=== PATIENT | female | born 1965 | race African-American/Black ===

== ENCOUNTER 2024-12-05 11:58 | Emergency (ER) | payer OTHER, SELFPAY ==
--- OUTSIDE RECORDS SUMMARY | 2024-12-05 08:00 | XMS_ITS | Encounter Summary ---
Author Organization [facility] Address [address] [place] [address] Care Team Providers Care Jar Capper Name Role Phone Kishore Nix MD Primary Care Provider [phone] Reason for Referral * Consultation (Routine) - Authorized Specialty Diagnoses / Procedures Referred By Radha matthews Referred To Contact Gastroenterology Diagnoses Other specified counseling Kishore Nix MD [address] [place] [address] Phone: tel: fax: Adalberto Britt DO [address] [place] [address] Phone: tel: fax: Referral ID Status Reason Start Date Expiration Date Visits Requested Visits Authorized [id number] Authorized Specialty Services Required 12/05/2025 1 1 Reason for Visit * Reason Comments Hypertension Hyperlipidemia Encounter Details Date Type Department Care Team (Late st Contact Info) Description 12/05/2024 8:00 AM EDT Office Visit Adult Medicine [address] [phone] Kishore Nix MD [address] [place] [address] Primary hypertension (Primary Dx); Prediabetes; CKD (chronic kidney disease) stage 4, GFR 15-29 ml/min ([facility] V24, [facility] V28); High cholesterol; Encounter for long-term (current) use of medications; Obstructive sleep apnea; Need for prophylactic vaccination and inoculation against influenza; Other specified counseling Social History Tobacco Use Types Packs/Day Years Used Date Smoking Tobacco: Never Smokeless Tobacco: Never Tobacco Cessation:Counseling Given: Not Answered Alcohol Use Standard Drinks/Week Comments Yes 3.3 (1 standard drink = 0.6 oz p ure alcohol) Housing Instability Answer Date Recorde d Are you worried that in the next 2 months you may not have stable housing? No 06/09/2024 Food Access & Nutrition Answer Date Rec orded Do you have access to a vari ety of food including fruits and vegetables? Yes 06/09/2024 Access to Healthcare Answer Date Record ed Within the last 3 months, ho w many times did you visit the emergency department for your medical care? 0 06/09/2024 Health Literacy Answer Date Recorded How often do you need to hav e someone help you when you read instructions, pamphlets, or other written material from your doctor or pharmacy? Never 06/09/2024 Caregiver: How often do you need to have someone help you when you read instructions, pamphlets, or other written material from your doctor or pharmacy? Not on file 06/09/2024 Financial Risk Answer Date Recorded How hard is it for you to pa y for the very basics like food, housing, medical care, and air conditioning / heating? Not very hard 06/09/2024 Transportation Answer Date Recorded Has the lack of transportati on kept you from meetings, work, or from getting things needed for daily living? No Has the lack of transportati on kept you from medical appointments or from getting medications? No 06/09/2024 Social Isolation Answer Date Recorded How often do you feel lonely or isolated from th ose around you? Never 06/09/2024 Food Risk Answer Date Recorded Within the past 12 months we worried whether our food would run out before we got money to buy more. Never true 06/09/2024 Within the past 12 months th e food we bought just didn't last and we didn't have money to get more. Never true 06/09/2024 Dependent Care Answer Date Recorded Do you need help finding or paying for care for your loved ones. For example, child study team director or elderly care for an older adult? No 06/09/2024 Education Answer Date Recorded Do you think completing more education or training, like finishing a GED, going to college, or learning a trade, would be helpful for you? No 06/09/2024 Employment and Income Answer Date Recor ded During the last four weeks, have you been actively looking for work? No 06/09/2024 Living Situation Answer Date Recorded What is your living situation? Unrecognized valu e 06/09/2024 Comments No Sex and Gender Information Value Date Recorded Sex Assigned at Not on file Legal Sex Female 8:00 AM EST Gender Identity Not on file Sexual Orientation Not on file documented as of this encounter Last Filed Vital Signs Vital Sign Reading Time Taken Comments Blood Pressure 122/84 12/05/2024 8:03 AM EDT Pulse 60 12/05/2024 8:03 AM EDT Temperature 36.5 C (97.7 F) 12/05/2024 8:03 AM EDT Respiratory Rate 14 12/05/2024 8:03 AM EDT Oxygen Saturation 97% 12/05/2024 8:03 AM EDT Inhaled Oxygen Concentration - - Weight 83.9 kg (185 lb) 12/05/2024 8:03 AM EDT Height 160 cm (5' 3 ) 12/05/2024 8:03 AM EDT Body Mass Index 32.77 12/05/2024 8:03 AM EDT documented in this encounter Progress Notes * Kishore Nix MD - 12/05/2024 8:00 AM EDT CHIEF COMPLAINT: Hypertension and Hyperlipidemia IDENTIFIER: Ruthann Tamez is a 59 y.o. old female. HPI: Pt with htn pt is on lisinopril 20 mg norvasc 5mg ,coreg 12.5mg bid bp today near goal @122/84 Pt denies light head/dizziness, shortness of breath , chest pain lower ext edema mild cough on occasion not overly bothersome Pt with high cholesterol pt is on high intensity statin therapy with atorvastatin 40mg Last ldl 64 06/2024 lfts wnl Pt with ckd stage 4 last gfr 10 06/2024 Pt follows with renal (linda) Next appointment 02/26/2025 Pt with prediabetes A1c 5.4 06/2024 Pt with susan does have the cpap Pt not using regularly pt states bothers her allot makes the nose dry Pt to see pulm 01/24/2025 Pt is following with weight management pt has been on zepbound > 6 months Has f/u with bariatrics 05/2024 Has lost 73 pounds ROS: GENERAL: Negative for malaise, significant weight loss and fever RESPIRATORY: No cough, wheezing or shortness of breath CARDIOVASCULAR: Negative for chest pain, leg swelling and palpitations PAST MEDICAL HISTORY: Patient Active Problem List Diagnosis Date Noted Obesity (BMI 30-39.9) 12/01/2023 Postmenopausal bleeding 10/28/2022 Prediabetes 05/07/2020 Chronic insomnia 04/22/2019 Hypersomnolence 04/22/2019 High triglycerides 12/12/2017 Vitamin D deficiency 12/22/2016 Depression 03/30/2015 Obstructive sleep apnea 02/04/2014 CKD (chronic kidney disease) stage 4, GFR 15-29 ml/min (CMS/HCC V24, CMS/HCC V28) 07/12/2012 Proteinuria 06/22/2012 Other iron deficiency anemias 09/01/2009 Allergic rhinitis 05/18/2007 Anxiety 05/18/2007 Intramural leiomyoma of uterus 05/31/2006 Heartburn 10/21/2005 Hematuria 10/21/2005 Hypertension 10/21/2005 SOCIAL HISTORY: Social History Tobacco Use Smoking status: Never Smokeless tobacco: Never Substance Use Topics Alcohol use: Yes Alcohol/week: 3.3 standard drinks of alcohol FAMILY HISTORY: Family Status Relation Name Status Mother Alive htn Father at age 78 htn, renal failure MGM (Not Specified) PGM (Not Specified) Brother (Not Specified) Sister (Not Specified) Neg Hx (Not Specified) Brother Alive Sister Alive dm Sister Alive htn, Brother Alive No partnership data on file Family History[1] ACTIVE MEDICATIONS: Medications Taking[2] ALLERGIES: Patient has no known allergies. PHYSICAL EXAM: Blood pressure 122/84, pulse 60, temperature 36.5 ??C (97.7 ??F), temperature source Temporal, resp. rate 14, height 1.6 m (63 ), weight 83.9 kg (185 lb), SpO2 97%. There is no height or weight on file to calculate BMI. Plan is deferred until next visit APPEARANCE: Alert and in no acute distress EYES: PERRLA, conjunctiva and sclera normal HEART: RRR with normal S1 and S2, no murmurs, no gallops, no JVD appreciated LUNG: clear to auscultation bilaterally EXTREMITIES: Extremities warm and well perfused without clubbing, cyanosis, or edema LABS: none IMPRESSION: 1. Primary hypertension 2. Prediabetes 3. CKD (chronic kidney disease) stage 4, GFR 15-29 ml/min ([facility] V24, [facility] V28) 4. High cholesterol 5. Encounter for long-term (current) use of medications 6. Obstructive sleep apnea 7. Need for prophylactic vaccination and inoculation against influenza 8. Other specified counseling PLAN: Pt with htn bp today at goal <140/90 pt will continue current regimen of lisinopril 20 mg norvasc 5mg ,coreg 12.5mg bid. Will order bmp to assess renal function and lytes pt with high cholesterol on a statin will check lipid profile and lft's last ldl < 70 pt to continue current statin therapy Pt with prediabetes will check update A1c, d/w pt to watch diet as they are at risk of developing diabetes in the future pt on glp1a has lost > 50 lbs Pt with susan not using pt notes bothersome pt has lost > 50 lbs ? Still has need for cap patient has appointment with pulm 01/2025 ahi 8 08/2024 Patient with ckd stage iv pt last gfr 10 bmp ordered today to update gfr. Pt follows with renal I will defer management per patient renal replacement is not currently being discussed Patient is due for colonoscopy referral to gi placed today Patient to f/u with me in 6 months Myself and my colleagues have maintained a long-term, longitudinal relationship with this patient, overseeing care of chronic conditions including hypertension and high cholesterol. This care relationship has significantly influenced my decision making and treatment plans during today's encounter. No orders of the defined types were placed in this encounter. ADDITIONAL ORDERS: None Kishore Nix MD on 12/05/2024 at 7:09 AM EDT [1] Family History Problem Relation Name Age of Onset Hyperlipidemia Mother Hyperlipidemia Father Hypertension Father Heart attack Father in his 60's Bladder Cancer Father Diabetes Maternal Grandmother Diabetes Paternal Grandmother Hypertension Brother Diabetes Sister Blindness Neg Hx Cataracts Neg Hx Glaucoma Neg Hx Macular degeneration Neg Hx Strabismus Neg Hx Colon cancer Neg Hx Breast cancer Neg Hx Ovarian cancer Neg Hx [2] No outpatient medications have been marked as taking for the 12/05/24 encounter (Appointment) with Kishore Nix MD. documented in this encounter Plan of Treatment Upcoming Encounters Date Type Department Care Team (Late st Contact Info) Description 12/06/2024 9:00 AM EDT Office Visit Adult Medicine [address] [phone] Kishore Nix MD [address] [place] [address] 01/24/2025 8:30 AM EST Office Visit Pulmonology - [address] [place] [phone] oJhn Cornejo MD [address] [place] [phone] 05/08/2025 1:45 PM EDT Office Visit Bariatric Surgery - [address] [place] [phone] Delmar Gamboa MD [address] [place] [phone] 05/29/2025 8:00 AM EDT Appointment Radiology Department - [address] [phone] 06/17/2025 1:00 PM EDT Office Visit Adult [address] [phone] Kishore Nix MD [address] [place] [address] Scheduled Referrals Name Type Priority Associated Diagnoses Order Schedule Ambulatory referral to Gastroenterology Outpatient Referral Routine Other specified counseling 1 Occurrences starting 12/05/2024 until 12/05/2025 documented as of this encounter Results * Hemoglobin A1c (12/05/2024 8:35 AM EDT) [facility] Hemoglobin A1C 5.2 <6.5 % LAB CHEMISTRY METHOD 12/05/2024 11:22 AM EDT [facility] Mean Bld Glu Estim. 103 mg/dL LAB CHEMISTRY METHOD 12/05/2024 11:22 AM EDT [facility] Blood Venous blood specimen / Unknown Venipuncture / Unknown 12/05/2024 8:35 AM EDT 12/05/2024 8:35 AM EDT us Kishore Nix MD LAB BLOOD ORDERABLES Final Resu lt [facility] [address] [place] [address], * (ABNORMAL) Comprehensive metabolic panel (12/05/2024 8:35 AM EDT) [facility] Sodium 138 133 - 145 mmol/L LAB CHEMISTRY METHOD 12/05/2024 11:45 AM [facility] Potassium 6.1(HH) 3.5 - 5.5 mmol/L LAB CHEMISTRY METHOD 12/05/2024 11:45 AM [facility] Chloride 113(H) 96 - 110 mmol/L LAB CHEMISTRY METHOD 12/05/2024 11:45 AM [facility] CO2 19(L) 21 - 32 mmol/L LAB CHEMISTRY METHOD 12/05/2024 11:45 AM [facility] Anion Gap 6 3 - 11 LAB CHEMISTRY METHOD 12/05/2024 11:45 AM [facility] Glucose 92 70 - 100 mg/dL LAB CHEMISTRY METHOD 12/05/2024 11:45 AM [facility] BUN 43(H) 5 - 25 mg/dL LAB CHEMISTRY METHOD 12/05/2024 11:45 AM [facility] Creatinine 3.59(H) 0.50 - 1.10 mg/dL LAB CHEMISTRY METHOD 12/05/2024 11:45 AM [facility] eGFR 14(L) >=60 mL/min/1. 73m2 LAB CHEMISTRY METHOD 12/05/2024 11:45 AM [facility] Comment:Calculation based on the Chronic Kidney Disease Epidemiology Collaboration (CKD-EPI) equation refit without adjustment for race. BUN/Creatinine Ratio 12.0 LAB CHEMISTRY METHOD 12/05/2024 11:45 AM [facility] Calcium 9.0 8.5 - 10.5 mg/dL LAB CHEMISTRY METHOD 12/05/2024 11:45 AM [facility] AST (SGOT) 20 10 - 42 unit/L LAB CHEMISTRY METHOD 12/05/2024 11:45 AM [facility] ALT (SGPT) 21 10 - 60 unit/L LAB CHEMISTRY METHOD 12/05/2024 11:45 AM [facility] Alkaline Phosphatase 61 42 - 121 unit/L LAB CHEMISTRY METHOD 12/05/2024 11:45 AM [facility] Total Protein 6.9 6.0 - 8.0 g/dL LAB CHEMISTRY METHOD 12/05/2024 11:45 AM [facility] Albumin 3.8 3.2 - 5.0 g/dL LAB CHEMISTRY METHOD 12/05/2024 11:45 AM [facility] Total Bilirubin 0.5 0.0 - 1.4 mg/dL LAB CHEMISTRY METHOD 12/05/2024 11:45 AM [facility] Blood Venous blood specimen / Unknown Venipuncture / Unknown 12/05/2024 8:35 AM EDT 12/05/2024 8:35 AM EDT us Kishore Nix MD LAB BLOOD ORDERABLES Final Resu lt Performing Organization Address [facility]/ZIP Co de Phone Number [facility] [address] [place] [address], [place] [phone] * Lipid panel with reflex to direct LDL (12/05/2024 8:35 AM EDT) Cholesterol 171 0 - 200 mg/dL LAB CHEMISTRY METHOD 12/05/2024 11:14 AM EDT [facility] Triglycerides 103 0 - 150 mg/dL LAB CHEMISTRY METHOD 12/05/2024 11:14 AM EDT [facility] HDL 55 >=40 mg/dL LAB CHEMISTRY METHOD [facility]/05[facility] LDL Calculated 95 0 - 100 mg/dL LAB CHEMISTRY METHOD 12/05/2024 11:14 AM EDT [facility] Comment:Estimated LDL Calcul ated using equation: Total cholesterol - HDL cholesterol - (Triglycerides/5) VLDL Cholesterol Balwinder 20.6 mg/dL LAB CHEMISTRY METHOD 12/05/2024 11:14 AM EDT [facility] Non HDL Chol. (LDL+VLDL) 116 <145 mg/dL LAB CHEMISTRY METHOD 12/05/2024 11:14 AM EDT [facility] Chol/HDL Ratio 3.1 0.0 - 4.4 LAB CHEMISTRY METHOD 12/05/2024 11:14 AM T [facility] Blood Venous blood specimen / Unknown Venipuncture / Unknown 12/05/2024 8:35 AM EDT 12/05/2024 8:35 AM EDT us Kishore Nix MD LAB BLOOD ORDERABLES Final Resu lt [facility] [address] [place] [address], [place] [phone] documented in this encounter Visit Diagnoses Diagnosis Primary hypertension- Primary Unspecified essential hypertension Prediabetes Other abnormal glucose CKD (chronic kidney disease) stage 4, GFR 15-29 ml/min ([facility] V24, [facility] V28) Chronic kidney disease, Stage IV (severe) High cholesterol Pure hypercholesterolemia Encounter for long-term (current) use of medications Encounter for long-term (current) use of other medications Obstructive sleep apnea Obstructive sleep apnea (adult) (pediatric) Need for prophylactic vaccination and inoculation against influenza Other specified counseling documented in this encounter Orders Immunization/Injection Count Last Ordered Date First Ordered Date INFLUENZA TRIVALENT, MDCK, 0 .5ML, PRESERVATIVE FREE (FLUCELVAX) 6MO AND OLDER 1 12/05/2024 documented in this encounter Additional Health Concerns Assessment Noted Time PHQ-9 Depression Total Score: 0 06/10/19 25 10:24 AM EDT documented as of this encounter Care Teams Jar Capper Relationship Specialty Start Date End Date Kishore Nix MD [address] [place] [phone] PCP - General Internal Medicine 01/25/24 documented as of this encounter
--- OUTSIDE RECORDS SUMMARY | 2024-12-05 08:30 | XMS_ITS | Encounter Summary ---
Author Organization [facility] Address [address] [place] [address] Care Team Providers Care Day Care Teacher Name Role Phone Kishore Nix MD Primary Care Provider [phone] Encounter Details Date Type Department Care Team (Late st Contact Info) Description 12/05/2024 8:30 AM EDT Lab Draw Station [address] [phone] Prediabetes; Primary hypertension; CKD (chronic kidney disease) stage 4, GFR 15-29 ml/min (CMS/HCC V24, CMS/HCC V28); Encounter for long-term (current) use of medications; High cholesterol Social History Tobacco Use Types Packs/Day Years Used Date Smoking Tobacco: Never Smokeless Tobacco: Never Alcohol Use Standard Drinks/Week Comments Yes 3.3 [...] Record ed Within the last 3 months, candace w many times did you visit the [...] for your loved ones. For example, child welfare caseworker or elderly care for an older adult? [...] on file documented as of this encounter Plan of Treatment Upcoming Encounters Date Type Department Care Team (Late st Contact Info) Description 12/06/2024 9:00 AM EDT Office Visit Adult Medicine [address] [phone] Kishore Nix MD [address] [place] [address] 01/24/2025 8:30 AM EST Office Visit Pulmonology - [place] [address] [facility] [address] [place] [phone] John Cornejo MD [address] [place] [phone] 05/08/2025 1:45 PM EDT Office Visit Bariatric Surgery - [place] [address] [facility] [address] [place] [phone] Delmar Gamboa MD [address] [place] [phone] 05/29/2025 8:00 AM EDT Appointment Radiology Department - [address] [phone] 06/17/2025 1:00 PM EDT Office Visit Adult Medicine [place] [address] [phone] Kishore Nix MD [address] [place] [address] documented as of this encounter Procedures Procedure Name Priority Date/Time Associated Diagnosis Comments LIPID PANEL WITH REFLEX TO DIRECT LDL Routine 12/05/2024 8:35 AM EDT High cholesterol HEMOGLOBIN A1C Routine 12/05/2024 8:35 AM EDT Prediabetes COMPREHENSIVE METABOLIC PANEL Routine 12/05/2024 8:35 AM EDT Primary hypertension Prediabetes CKD (chronic kidney disease) stage 4, GFR 15-29 ml/min ([facility] V24, [facility] V28) Encounter for long-term (current) use of medications documented in this encounter Results * Lipid panel with reflex to direct LDL (12/05/2024 8:35 AM EDT) Cholesterol 171 0 - 200 mg/dL LAB CHEMISTRY METHOD 12/05/2024 11:14 AM [facility] Triglycerides 103 0 - 150 mg/dL LAB CHEMISTRY METHOD 12/05/2024 11:14 AM [facility] HDL 55 >=40 mg/dL LAB CHEMISTRY METHOD 12/05/2024 11:14 AM [facility] LDL Calculated 95 0 - 100 mg/dL LAB CHEMISTRY METHOD 12/05/2024 11:14 AM [facility] Comment:Estimated LDL Calcul ated using equation: Total cholesterol - HDL cholesterol - (Triglycerides/5) VLDL Cholesterol Balwinder 20.6 mg/dL LAB CHEMISTRY METHOD 12/05/2024 11:14 AM [facility] Non HDL Chol. (LDL+VLDL) 116 <145 mg/dL LAB CHEMISTRY METHOD 12/05/2024 11:14 AM [facility] Chol/HDL Ratio 3.1 0.0 - 4.4 LAB CHEMISTRY METHOD 12/05/2024 11:14 AM [facility] Blood Venous blood specimen / Unknown Venipuncture / Unknown 12/05/2024 8:35 AM EDT 12/05/2024 8:35 AM EDT us Kishore Nix MD LAB BLOOD ORDERABLES Final Resu lt [facility] [address] [place] [address], * (ABNORMAL) Comprehensive metabolic panel (12/05/2024 8:35 AM EDT) Sodium 138 133 - 145 mmol/L LAB CHEMISTRY METHOD 12/05/2024 11:45 AM [facility] Potassium 6.1(HH) 3.5 - 5.5 mmol/L LAB CHEMISTRY METHOD 12/05/2024 11:45 AM [facility] Chloride 113(H) 96 - 110 mmol/L LAB CHEMISTRY METHOD 12/05/2024 11:45 AM [facility] CO2 19(L) 21 - 32 mmol/L LAB CHEMISTRY METHOD 12/05/2024 11:45 AM [facility] Anion Gap 6 3 - 11 LAB CHEMISTRY METHOD 12/05/2024 11:45 AM [facility] Glucose 92 70 - 100 mg/dL LAB CHEMISTRY METHOD 12/05/2024 11:45 AM [facility] BUN 43(H) 5 - 25 mg/dL LAB CHEMISTRY METHOD 12/05/2024 11:45 AM [facility] Creatinine 3.59(H) 0.50 - 1.10 mg/dL LAB CHEMISTRY METHOD 12/05/2024 11:45 AM [facility] eGFR 14(L) >=60 mL/min/1. 73m2 LAB CHEMISTRY METHOD 12/05/2024 11:45 AM [facility] Comment:Calculation based on the Chronic Kidney Disease Epidemiology Collaboration (CKD-EPI) equation refit without adjustment for race. BUN/Creatinine Ratio 12.0 LAB CHEMISTRY METHOD 12/05/2024 11:45 AM [facility] Calcium 9.0 8.5 - 10.5 mg/dL LAB CHEMISTRY METHOD 12/05/2024 11:45 AM [facility] AST (SGOT) 20 10 - 42 unit/L LAB CHEMISTRY METHOD 12/05/2024 11:45 AM [facility] ALT (SGPT) 21 10 - 60 unit/L LAB CHEMISTRY METHOD 12/05/2024 11:45 AM [facility] Alkaline Phosphatase 61 42 - 121 unit/L LAB CHEMISTRY METHOD 12/05/2024 11:45 AM [facility] Total Protein 6.9 6.0 - 8.0 g/dL LAB CHEMISTRY METHOD 12/05/2024 11:45 AM [facility] Albumin 3.8 3.2 - 5.0 g/dL LAB CHEMISTRY METHOD 12/05/2024 11:45 AM EDT [facility] Total Bilirubin 0.5 0.0 - 1.4 mg/dL LAB CHEMISTRY METHOD 12/05/2024 11:45 AM EDT [facility] Blood Venous blood specimen / Unknown Venipuncture / Unknown 12/05/2024 8:35 AM EDT 12/05/2024 8:35 AM EDT us Kishore Nix MD LAB BLOOD ORDERABLES Final Resu lt [facility] [address] [place] [address], [place] [phone] * Hemoglobin A1c (12/05/2024 8:35 AM EDT) Hemoglobin A1C 5.2 <6.5 % LAB CHEMISTRY METHOD 12/05/2024 11:22 AM EDT [facility] Mean Bld Glu Estim. 103 mg/dL LAB CHEMISTRY METHOD 12/05/2024 11:22 AM EDT [facility] Blood Venous blood specimen / Unknown Venipuncture / Unknown 12/05/2024 8:35 AM EDT 12/05/2024 8:35 AM EDT us Kishore Nix MD LAB BLOOD ORDERABLES Final Resu lt [facility] [address] [place] [address], [place] [phone] documented in this encounter Visit Diagnoses Diagnosis Prediabetes Other abnormal glucose Primary hypertension Unspecified essential hypertension CKD (chronic kidney disease) stage 4, GFR 15-29 ml/min ([facility] V24, [facility] V28) Chronic kidney disease, Stage IV (severe) Encounter for long-term (current) use of medications Encounter for long-term (current) use of other medications High cholesterol Pure hypercholesterolemia documented in this encounter Additional Health Concerns Assessment Noted Time PHQ-9 Depression Total Score: 0 06/10/19 25 10:24 AM EDT documented as of this encounter Care Teams Day Care Teacher Relationship Specialty Start Date End Date Kishore Nix MD [address] [place] [phone] PCP - General Internal Medicine 01/25/24 documented as of this encounter
[2024-12-05 12:33] VITALS: BP 161/102; PULSE 73; RESP 16; TEMP 36.6; O2SAT 98; BMI 32.8
--- NOTE | 2024-12-05 12:34 | ECG_ITS ---
Test Reason : HYPERKALEMIA Blood Pressure : */* mmHG Vent. Rate : 69 BPM Atrial Rate : 69 BPM P-R Int : 170 ms QRS Dur : 80 ms QT Int : 366 ms P-R-T Axes : 62 20 51 degrees QTcB Int : 392 ms Normal sinus rhythm Normal ECG When compared with ECG of 09-Mar-2015 07:00, No significant change was found Referred By: Jared Petersen Electronically Signed By: CLIFTON PEREZ
--- NOTE | 2024-12-05 12:37 | ED.GENADULT ---
HPI - General Adult General Chief complaint: Recheck/Abnormal Lab/Rx Stated complaint: abnormal labs Time Seen by Provider: 12/05/24 18:50 Source: patient Mode of arrival: ambulatory Limitations: no limitations History of Present Illness ED Provider: Jared Petersen HPI narrative: 59 yold female with pmh of CKD presents to the ED for hyperkelemia. Patient was sent from PCP due to potassium level of 6.1. patient labs were drawn this morning and when she got home they called her with results and informed her to go go the ED. Patient denies any symptoms. patient states she feels fine. Related Data Home Medications ?Medication ?Instructions ?Recorded ?Confirmed albuterol sulfate 90 mcg/actuation inhalation 08/27/20 08/27/20 aerosol inhaler amlodipine 5 mg tablet 5 mg PO DAILY 08/27/20 08/27/20 atorvastatin 20 mg tablet 20 mg PO BEDTIME 08/27/20 08/27/20 carvedilol 12.5 mg tablet 12.5 mg PO BID 08/27/20 08/27/20 ergocalciferol (vitamin D2) 1,250 1,250 mcg PO QWEEK 08/27/20 08/27/20 mcg (50,000 unit) capsule lisinopril 20 mg tablet 20 mg PO DAILY 08/27/20 08/27/20 omeprazole 20 mg capsule,delayed 20 mg PO DAILY 08/27/20 08/27/20 release sertraline 100 mg tablet 100 mg PO DAILY 08/27/20 08/27/20 Previous Rx's ?Medication ?Instructions ?Recorded amoxicillin 875 mg-potassium 1 tab PO BID #20 tabs 08/27/20 clavulanate 125 mg tablet (Augmentin) prednisone 20 mg tablet 20 mg PO .COMPLEX #18 tabs 08/27/20 Allergies Allergy/AdvReac Type Severity Reaction Status Date / Time No Known Allergies (No Known Allergy Verified 12/05/24 12:35 Allergies*) Review of Systems Review of Systems: asymptomatic hyperkalemia Yes all other systems are reviewed and are negative PMFSH Social History Social History Advance Directives: No Advance Directives Information Provided: No Physical Exam ED Vital Signs: Vital Signs - 24 hr 12/05/24 12:33 12/05/24 18:43 Temperature 97.8 F 98 F Pulse Rate 73 73 Respiratory Rate 16 18 Blood Pressure 161/102 H 152/98 H Pulse Oximetry 98 97 Oxygen Delivery Method Room Air Room Air BMI result Body Mass Index 32.8 Const General: cooperative, healthy appearing, comfortable, no acute distress, well developed, alert, awake and Physically active Orientation/consciousness: patient oriented x3 [facility] Head: Yes normal to inspection, Yes No palpable skull fracture present, Yes normocephalic and Yes atraumatic Ears: hearing grossly normal bilaterally, external ears normal, TM's normal bilaterally, TM normal on the right, TM normal on the left, EAC's normal, mastoids normal and no periauricular adenopathy General nose exam: Normal external nose present, Normal nares present and No nasal polyps present Face and sinus: Yes normal facial exam, Yes sinuses nontender and Yes face symmetric Mouth: Normal oral and palatal mucosa present, lip normal and tongue normal Throat: Yes posterior oropharynx normal, Yes tonsils normal and Yes uvula midline Eyes General: appearance normal, both eyes and all related structures Neck Neck: Yes normal visual inspection, Yes full ROM, Yes no lymphadenopathy, Yes no meningeal signs, Yes trachea midline, Yes supple, No anterior neck swelling and No tender Chest Chest palpation & inspection: normal inspection of the chest and normal palpation of entire chest wall Resp Effort & Inspection: normal respiratory effort and able to speak in complete sentences Auscultation: clear to auscultation bilaterally Cardio Jugular venous distension: no JVD Heart sounds: S1 normal heart sound present and S2 normal heart sound present GI Inspection: Yes normal to inspection Palpation (GI): Soft to palpation, not firm, nontender, no guarding and not rigid General: Yes no CVA tenderness Back/Spine/Pelvis Back: no CVA tenderness and No back tenderness Skin General skin exam: no rashes or lesions noted, elasticity normal and turgor normal Neuro General: patient oriented x3, gait normal, tone normal, moves all extremities, Normal light touch and pain sensation, no meningeal signs, no focal motor deficits, CN's II-XI intact bilaterally and normal sensation to monofilament Extrem General: Yes normal to inspection, Yes full ROM and Yes capillary refill normal Psych Appearance: grossly normal, well kempt and not disheveled Course Course Course Narrative: RME: 59-year-old female history of chronic kidney disease sent from the ED for elevated potassium. Patient is asymptomatic. Patient was called at home due to abnormal blood results and informed to return to the ED. Patient does not know how high the potassium in his. Patient is hypertensive to not take her high blood pressure medication today. Labs EKG ordered. Reevaluation(s) Reevaluation #1: Medical Decision Making Medical Decision Making [facility] Narrative: 59 yold female with with history of chronic kidney disease was sent from primary care provider for hyperkalemia. Patient has had labs drawn today and was called back due to potassium of 6.1. Patient is asymptomatic. Repeat labs here shows potassium normal. EKG was ordered in case there was hypokalemia and peaked T-waves. Negative for peak T-waves on exam. Rest of labs as baseline any reassuring. Patient is not having any chest pain or shortness of breath. No troponin indicated. Patient explained worrisome signs informed to return to the ED immediately. Differential Diagnosis Differential Diagnoses: The differential diagnosis associated with the presentation includes (Hyperkalemia, hypomagnesemia, JAMES,) Admission/Observation Consideration of admission/observation: Escalation of care including admission/observation considered Lab Data [facility] Lab Attestation statement: I reviewed the patient's lab results. 12/05/24 12:47 12/05/24 12:47 Labs: Lab Results 12/05/24 Range/Units 12:47 WBC 4.8 (4.8-10.8) X10*3/uL RBC 3.86 L (4.20-5.50) X10*6/uL Hgb 10.8 L (12.0-16.0) g/dl Hct 35.3 L (37.0-47.0) % MCV 91.5 (80.0-98.0) fL MCH 28.0 (27.0-33.0) pg MCHC 30.6 L (31.0-35.0) g/dl RDW 14.2 (11.0-16.0) % Plt Count 158 L (160-400) X10*3/uL MPV 8.4 L (9.4-12.3) fL Immature Gran % (Auto) 0.2 (0.0-0.4) % Neut % (Auto) 53.1 (45-73) % Lymph % (Auto) 40.7 H (20-40) % [place] % (Auto) 3.5 (2-11) % Eos % (Auto) 2.1 (0-4) % Baso % (Auto) 0.4 (0-2) % Lymph # (Auto) 2.0 (1.2-4.9) X10*3/uL [place] # (Auto) 0.2 (0.1-1.2) X10*3/uL Eos # (Auto) 0.1 (0.0-0.4) X10*3/uL Baso # (Auto) 0.0 (0.0-0.2) X10*3/uL Abs Immat Gran (auto) 0.01 (0.00-0.03) X10*3/uL Absolute Neuts (auto) 2.6 (2.0-8.3) x10*3/uL Absolute Nucleated RBC 0.000 (0.0-0.012) X10*3/uL Nucleated RBC % (auto) 0.0 (0.0-0.2) /100WBC Sodium 140 (135-145) mmol/L Potassium 4.9 (3.3-5.1) mmol/L Chloride 115 H (96-108) mmol/L Carbon Dioxide 20 L (22-29) mmol/L Anion Gap 10 L (12-20) BUN 42 H (9-16) mg/dL Creatinine 3.41 H (0.5-1.4) mg/dL Estim Creat Clear Calc 17.9 Estimated GFR 14 Random Glucose 112 (60-115) mg/dL Calcium 9.0 (8.4-10.2) mg/dL Magnesium 1.7 (1.6-2.6) mg/dL Total Bilirubin 0.4 (0.0-1.0) mg/dL AST 18 (5-31) U/L ALT 15 (0-31) U/L Alkaline Phosphatase 57 (39-117) U/L Total Protein 7.0 (6.5-8.0) g/dL Albumin 4.0 (3.5-5.0) g/dL Independent Interpretation I performed an independent interpretation of an: EKG (non-diagnostic) Independent Historian Clinical information obtained from an independent historian. History obtained from or confirmed by: Other (patient) Discharge Plan Discharge Clinical Impression: Chronic kidney disease Patient Disposition: Home, Self-Care Instructions: Chronic Kidney Disease (ED) Additional Instructions: Your lab work in our ED showed resolved meant of hyperkalemia without any medical intervention. In comparison to your labs done this morning, your labs in the ED were at baseline. Recommend follow up with primary care provider. Return to the ED immediately for any chest pain, shortness of breath, abdominal pain, flank pain, fever, chills, nausea, vomiting, weakness, dysuria, hematuria, or any other concerning symptoms. Prescriptions: No Action sertraline 100 mg tablet 100 mg PO DAILY albuterol sulfate 90 mcg/actuation HFA aerosol inhaler inhalation omeprazole 20 mg capsule,delayed release(DR/EC) 20 mg PO DAILY atorvastatin 20 mg tablet 20 mg PO BEDTIME carvedilol 12.5 mg tablet 12.5 mg PO BID amlodipine 5 mg tablet 5 mg PO DAILY lisinopril 20 mg tablet 20 mg PO DAILY ergocalciferol (vitamin D2) 1,250 mcg (50,000 unit) capsule 1,250 mcg PO QWEEK prednisone 20 mg tablet 20 mg PO .COMPLEX Qty: 18 0RF Rx Instructions: 20 mg PO 3 p.o. daily for 3 days followed by 2 p.o. daily for 3 days followed by 1 p.o. daily for 3 days; amoxicillin-pot clavulanate [Augmentin] 875-125 mg tablet 1 tab PO BID Qty: 20 0RF Referrals: Kishore Nix III, MD [Primary Care Provider, Medical] - 2 days Referral Note: Chronic kidney disease hyperkalemia Clinical Impression: Chronic kidney disease Stand Alone Forms: Work/School Release Interventions: ED Discharge Assessment Last Done: 12/05/24 19:29 Discharge Date/Time: 12/05/24 19:30 Print Language: Yoruba
[2024-12-05 12:51] LABS: MANUAL DIFF FLAG NO
[2024-12-05 12:56] LABS: Hematocrit 35.3 % (37.0-47.0); Hemoglobin 10.8 g/dl (12.0-16.0); Imm Gran Abs Auto 0.01 X10*3/uL (0.00-0.03); Imm Gran Pct Auto 0.2 % (0.0-0.4); Lymphocytes Absolute Auto 2.0 X10*3/uL (1.2-4.9); Mean Corpuscular HGB Conc 30.6 g/dl (31.0-35.0); Mean Corpuscular Hemoglobin 28.0 pg (27.0-33.0); Mean Corpuscular Volume 91.5 fL (80.0-98.0); NRBC Abs Auto 0.000 X10*3/uL (0.0-0.012); NRBC Pct Auto 0.0 /100WBC (0.0-0.2); Platelet Count 158 X10*3/uL (160-400); Red Blood Count 3.86 X10*6/uL (4.20-5.50); White Blood Count 4.8 X10*3/uL (4.8-10.8)
[2024-12-05 13:06] LABS: Alanine Aminotransferase 15 U/L (0-31); Albumin Level 4.0 g/dL (3.5-5.0); Alkaline Phosphatase 57 U/L (39-117); Anion Gap 10 (12-20); Aspartate Amino Transferase 18 U/L (5-31); Blood Urea Nitrogen 42 mg/dL (9-16); Calcium 9.0 mg/dL (8.4-10.2); Carbon Dioxide 20 mmol/L (22-29); Chloride 115 mmol/L (96-108); Creatinine Clr Calc Pharmacy 17.9; Estimated Glomerular Filt Rate 14; Magnesium 1.7 mg/dL (1.6-2.6); Potassium 4.9 mmol/L (3.3-5.1); Sodium 140 mmol/L (135-145); Total Protein 7.0 g/dL (6.5-8.0)
[2024-12-05 18:43] VITALS: BP 152/98; PULSE 73; RESP 18; TEMP 36.6; O2SAT 97
--- OUTSIDE RECORDS SUMMARY | 2024-12-05 19:16 | XMS_ITS | Encounter Summary ---
Author Organization [facility], Address [address] [place] [address] Phone Care Team Providers Care Venue Coordinator Name Role Phone Kishore Nix MD Primary Care Provider [phone] Encounter Details Date Type Department Care Team (Late st Contact Info) Description 07/19/2024 Orders Only [facility] [address] [place] [address] Bhavik Burgos MD [address] [place] [address] [place] [address] Chronic kidney disease, stage 4 (severe) ([facility]) Social History Tobacco Use Types Packs/Day Years Used Date Smoking Tobacco: Never Smokeless Tobacco: Never Alcohol Use Standard Drinks/Week Comments Yes 0 (1 standard drink = 0.6 oz pure alcohol) Alcoholic Drinks/day: Occasional social drink Comments Unknown Sex and Gender Information Value Date Recorded Sex Assigned at Not on file Legal Sex Female 4:34 PM EST Gender Identity Not on file Sexual Orientation Not on file documented as of this encounter Plan of Treatment Upcoming Encounters Date Type Department Care Team (Late st Contact Info) Description 02/26/2025 9:00 AM EST Office Visit [facility] [address] [place] [address] Bhavik Burgos MD [address] [place] [address] [place] [address] documented as of this encounter Visit Diagnoses Diagnosis Chronic kidney disease, stage 4 (severe) (HCC) documented in this encounter Care Teams Venue Coordinator Relationship Specialty Start Date End Date Kishore Nix MD PCP - General 12/11/18 documented as of this encounter
--- OUTSIDE RECORDS SUMMARY | 2024-12-05 19:16 | XMS_ITS | Encounter Summary ---
Author Organization [facility] [place], Address [address] [place] [address] Phone Care Team Providers Care Cyber Software Engineer Name Role Phone Kishore Nix MD Primary Care Provider [phone] Encounter Details Date Type Department Care Team (Late st Contact Info) Description 08/16/2024 Orders Only [facility] [address] [place] [address] Bhavik Burgos MD [address] [place] [address] [place] [address] Chronic kidney disease, stage 4 (severe) ([facility]) Social History Tobacco Use Types Packs/Day Years [...] Visit [facility] [address] [place] [address] Bhavik Burgos MD [address] [place] [address] [place] [address] documented as of this encounter Procedures Procedure Name Priority Date/Time Associated Diagnosis Comments BASIC METABOLIC PANEL Routine 09/26/2024 1:51 PM EDT Chronic kidney disease, stage 4 (severe) (HCC) documented in this encounter Results * (ABNORMAL) Basic metabolic panel (09/26/2024 1:51 PM EDT) BUN 64(H) 8 - 27 mg/dL [facility] Sodium 140 134 - 144 mmol/L [facility] Chloride 112(H) 96 - 106 mmol/L [facility] Glucose 58(L) 70 - 99 mg/dL [facility] Comment:Verified by repeat analysis Creatinine 3.76(H) 0.57 - 1.00 mg/dL [facility] eGFR CKD-EPI CR 2020 13(L) >59 mL/min/1.7 3 [facility] BUN/Creatinine Ratio 17 12 - 28 [facility] Potassium 5.6(H) 3.5 - 5.2 mmol/L [facility] Comment:Verified by repeat analysis Bicarbonate (CO2) 12(L) 20 - 29 mmol/L [facility] Comment:Verified by repeat analysis Calcium 8.5(L) 8.7 - 10.3 mg/dL [facility] Blood specimen (specimen) Venous blood / Unknown 09/26/2024 1:51 PM EDT 09/26/2024 us Bhavik Burgos MD LAB BLOOD ORDERABLES Final [facility] [address] [place] [address] documented in this encounter Visit Diagnoses Diagnosis Chronic kidney disease, stage 4 (severe) (HCC) documented in this encounter Care Teams Cyber Software Engineer Relationship Specialty Start Date End Date Kishore Nix MD PCP - General 12/11/18 documented as of this encounter
--- OUTSIDE RECORDS SUMMARY | 2024-12-05 19:16 | XMS_ITS | Encounter Summary ---
Author Organization [facility] [place], Address [address] [place] [address] Phone Care Team Providers Care Job Spotter Name Role Phone Kishore Nix MD Primary Care Provider [phone] Encounter Details Date Type Department Care Team (Late st Contact Info) Description 04/26/2024 Orders Only [facility] [address] [place] [address] Bhavik Burgos MD [address] [place] [address] [place] [address] Chronic kidney disease, stage 4 (severe) ([facility]) Social History Tobacco Use Types Packs/Day Years [...] Visit [facility] [address] [place] [address] Bhavik Burgos MD [address] [place] [address] [place] [address] documented as of this encounter Visit Diagnoses Diagnosis Chronic kidney disease, stage 4 (severe) (HCC) documented in this encounter Care Teams Job Spotter Relationship Specialty Start Date End Date Kishore Nix MD PCP - General 12/11/18 documented as of this encounter
--- OUTSIDE RECORDS SUMMARY | 2024-12-05 19:16 | XMS_ITS | Encounter Summary ---
Author Organization [facility] [place], Address [address] [place] [address] Phone Care Team Providers Care Soaker Meat Name Role Phone Kishore Nix MD Primary Care Provider [phone] Encounter Details Date Type Department Care Team (Late st Contact Info) Description 02/02/2024 Orders Only [facility] [address] [place] [address] Bhavik Burgos MD [address] [place] [address] [place] [address] Chronic kidney disease, stage 4 (severe) ([facility]) Social History Tobacco Use Types Packs/Day [...] Visit [facility] [address] [place] [address] Bhavik Burgos MD [address] [place] [address] [place] [address] documented as of this encounter Visit Diagnoses Diagnosis Chronic kidney disease, stage 4 (severe) (HCC) documented in this encounter Care Teams Soaker Meat Relationship Specialty Start Date End Date Kishore Nix MD PCP - General 12/11/18 documented as of this encounter
--- OUTSIDE RECORDS SUMMARY | 2024-12-05 19:16 | XMS_ITS | Encounter Summary ---
Author Organization [facility] [place], Address [address] [place] [address] Phone Care Team Providers Care Supervisor Cured Meats Name Role Phone Kishore Nix MD Primary Care Provider [phone] Encounter Details Date Type Department Care Team (Late st Contact Info) Description 03/01/2024 Orders Only [facility] [address] [place] [address] Bhavik Burgos MD [address] [place] [address] [place] [address] Chronic kidney disease, stage 4 (severe) ([facility]) Social History Tobacco Use Types [...] Visit [facility] [address] [place] [address] Bhavik Burgos MD [address] [place] [address] [place] [address] documented as of this encounter Visit Diagnoses Diagnosis Chronic kidney disease, stage 4 (severe) (HCC) documented in this encounter Care Teams Supervisor Cured Meats Relationship Specialty Start Date End Date Kishore Nix MD PCP - General 12/11/18 documented as of this encounter
--- OUTSIDE RECORDS SUMMARY | 2024-12-05 19:17 | XMS_ITS | Clinical Summary ---
Author Organization [facility], Address [address] [place] [address] [place] [address] Phone Care Team Providers Care Body Shop Worker Name Role Phone Kishore Nix MD Primary Care Provider [phone] Allergies No known active allergies Medications atorvastatin (LIPITOR) 20 MG tablet Take 20 mg by mouth 1 (one) time daily 30 minutes after same meal 12/10/2018 Active carvedilol (COREG) 12.5 MG tablet Take 12.5 mg by mouth 2 (two) times a day with meals 11/26/2018 Active acetaminophen (TYLENOL) 500 MG tablet Take 1 tablet by mouth if needed Active albuterol HFA (PROAIR HFA) 108 (90 Base) MCG/ACT inhaler Take 2 puffs by mouth every 4 (four) hours if needed 12/10/2018 Active Albuterol Sulfate (PROAIR RESPICLICK) 108 (90 Base) MCG/ACT aerosol powder 2 puffs by Other route every 4 (four) hours 2017 Active ergocalciferol (VITAMIN D2) 1.25 MG (43565 UT) capsule Take 50,000 Units by mouth 1 (one) time per week if needed 12/14/2018 Active fexofenadine (JUMA) 180 MG tablet Take 180 mg by mouth 05/04/2017 Active montelukast (SINGULAIR) 10 MG tablet Take 1 tablet by mouth at bed time Active omeprazole (PriLOSEC) [address] capsule Take 20 mg by mouth 1 (one) time each day 12/15/2018 Active LORazepam (ATIVAN) 0.5 MG tablet Take one tab prior to take off may repeat x one in flight prn 04/25/2019 Active lisinopril 40 MG tablet Take 1 tablet (40 mg total) by mouth 1 (one) time each day 90 tablet 3 12/09/2020 Active amLODIPine (NORVASC) 5 MG tablet Take 1 tablet (5 mg total) by mouth in the morning. 90 tablet 3 02/01/2022 Active lisinopril 20 MG tablet Take 20 mg by mouth 1 (one) time each day 01/21/2022 Active Blood Pressure Monitor kit Take blood pressure daily dx code 110 1 kit 1 03/22/2022 Active sertraline (ZOLOFT) 100 MG tablet TAKE ONE TABLET BY MOUTH EVERY DAY 30 MINUTES AFTER THE SAME MEAL 90 tablet 3 11/15/2023 Active Active Problems Problem Noted Date Diagnosed Date Chronic kidney disease, stage 4 (severe) 021 Hypertriglyceridemia 12/12/2017 Vitamin D deficiency 12/22/2016 Depressive disorder 03/30/2015 Sleep apnea 02/04/2014 Chronic kidney disease due to hypertension 07/12 Overview (02/22/2019): GFR < 60 on 03/2012, 04/2012, 05/2012. Proteinuria 06/22/2012 Iron deficiency anemia 09/01/2009 Morbid obesity 08/08/2008 Allergic rhinitis 05/18/2007 Anxiety 05/18/2007 Intramural leiomyoma of uterus 05/31/2006 Overview (02/22/2019): Intramural and subendometrial fibroid identified on US in 2004. Heartburn 10/21/2005 Hematuria 10/21/2005 Overview (02/22/2019): IMO update Hypertension 10/21/2005 Encounters Date Type Department Care Team Description 11/26/2024 2:30 PM EDT Office Visit [facility] [address] [place] [address] Bhavik Burgos MD Chronic kidney disease, stage 4 (severe) (HCC) (Primary Dx) 11/26/2024 Documentation Only [facility] [place] [facility] [address] [place] [address] Nafisa Willsonn 09/25/2024 4:50 PM EDT Office Visit [facility] [address] [place] [address] Bhavik Burgos MD Chronic kidney disease, stage 4 (severe) (HCC) (Primary Dx) from Last 3 Months Immunizations Immunization Administration Dates Next Due Influenza TIV (IM) 11/23/2012,10/25/2010 Influenza, MDCK, PF, Quadrivalent 11/05/2021,12/2020,01/20/2020 Pfizer SARS-COV-2 01/05/2021,2020,02/23/19 21 Tdap 05/25/2012 Family History Medical History Relation Comments Cancer Father bladder/bladder cancer Diabetes Father grandfather Hypertension Father Kidney disease Father Diabetes Mother grandmother Diabetes Sibling 1 sister Hypertension Sibling 2 sister Hypertension Sister diabetes Relation Status Comments Father Alive Mother Alive Sibling 1 Sibling 2 Sister Social History Tobacco Use Types Packs/Day Years [...] on file Sexual Orientation Not on file Last Filed Vital Signs Vital Sign Reading Time Taken Comments Blood Pressure 137/84 11/09/2022 9:31 AM EDT Pulse - - Temperature - - Respiratory Rate - - Oxygen Saturation - - Inhaled Oxygen Concentration - - Weight 118 kg (260 lb) 01/17/2019 10:51 AM EST Height 160 cm (5' 3 ) 12/20/2018 12:00 PM EST Body Mass Index 46.06 12/20/2018 12:00 PM EST Plan of Treatment Upcoming Encounters Date Type Department Care Team (Late st Contact Info) Description 02/26/2025 9:00 AM EST Office Visit [facility] [place], [address] [facility] [address] [id number] Bhavik Burgos MD [address] [place] [address] [place] [address] Health Maintenance Due Date Last Done Comments Breast Cancer Screening 1965 Pneumococcal Vaccine: 50+ Years (1 of 2 - PCV) 1983 Colorectal Cancer Screening: Annual FOBT 2013 Colorectal Cancer Screening: Colonoscopy 2013 Colorectal Cancer Screening: Sigmoidoscopy 2013 Influenza Vaccine (#1) 2024 , 11/05/2021, 11/16/2020, Additional history exists Hepatitis B Vaccine Aged Out No longe r eligible based on patient's age to complete this topic Procedures Procedure Name Priority Date/Time Associated Diagnosis Comments BASIC METABOLIC PANEL Routine 09/26/2024 1:51 PM EDT Chronic kidney disease, stage 4 (severe) (HCC) from Last 3 Months Results * (ABNORMAL) Basic metabolic panel (09/26/2024 1:51 PM EDT) BUN 64(H) 8 - 27 mg/dL [facility] Sodium 140 134 - 144 mmol/L [facility] Chloride 112(H) 96 - 106 mmol/L [facility] Glucose 58(L) 70 - 99 mg/dL [facility] Comment:Verified by repeat analysis Creatinine 3.76(H) 0.57 - 1.00 mg/dL [facility] eGFR CKD-EPI CR 2020 13(L) >59 mL/min/1.7 3 [facility] BUN/Creatinine Ratio 17 12 - 28 [facility] Potassium 5.6(H) 3.5 - 5.2 mmol/L [facility] Comment:Verified by repeat analysis Bicarbonate (CO2) 12(L) 20 - 29 mmol/L [facility] Comment:Verified by repeat analysis Calcium 8.5(L) 8.7 - 10.3 mg/dL [facility] Blood specimen (specimen) Venous blood / Unknown 09/26/2024 1:51 PM EDT 09/26/2024 us Bhavik Burgos MD LAB BLOOD ORDERABLES Final Re sult [facility] [address] [place] [address] from Last 3 Months Insurance [facility] [employer] Care Teams Body Shop Worker Relationship Specialty Start Date End Date Kishore Nix MD PCP - General 12/11/18
--- OUTSIDE RECORDS SUMMARY | 2024-12-05 19:17 | XMS_ITS | Encounter Summary ---
Author Organization [facility] Address [address] [place] [address] Care Team Providers Care Hotel Operation Manager Name Role Phone Kishore Nix MD Primary Care Provider [phone] Encounter Details Date Type Department Care Team (Late st Contact Info) Description 12/05/2024 Results Follow-Up Adult Medicine [address] [phone] Kishore Nix MD [address] [place] [address] Social History Tobacco Use Types Packs/Day Years [...] ed Within the last 3 months, candace naranjo many times did you visit the emergency [...] for your loved ones. For example, child center assistant or elderly care for an older adult? [...] on file documented as of this encounter Progress Notes * Kishore Nix MD - 12/05/2024 1:30 PM EDT Patient was advised to go to her patient with potassium of 6.1 in setting of ckd stage iv documented in this encounter Plan of Treatment Upcoming Encounters Date Type Department Care Team (Late st Contact Info) Description 12/06/2024 9:00 AM EDT Office Visit Adult Medicine [address] [phone] Kishore Nix MD [address] [place] [address] 01/24/2025 8:30 AM EST Office Visit Pulmonology - [place] [address] [facility] [address] [place] [address] John Cornejo MD [address] [place] [phone] 05/08/2025 1:45 PM EDT Office Visit Bariatric Surgery - [address] [place] [address] Delmar Gamboa MD [address] [place] [phone] 05/29/2025 8:00 AM EDT Appointment Radiology Department - [address] [phone] 06/17/2025 1:00 PM EDT Office Visit [address] [phone] Kishore Nix MD [address] [place] [address] documented as of this encounter Visit Diagnoses Not on filedocumented in this encounter Additional Health Concerns Assessment Noted Time PHQ-9 Depression Total Score: 0 06/10/19 25 10:24 AM EDT documented as of this encounter Care Teams Hotel Operation Manager Relationship Specialty Start Date End Date Kishore Nix MD [address] [place] [address] PCP - General Internal Medicine 01/25/24 documented as of this encounter
--- OUTSIDE RECORDS SUMMARY | 2024-12-05 19:17 | XMS_ITS | Encounter Summary ---
Author Organization [facility] [place] [address] Care Team Providers Care Arcade Attendant Name Role Phone Kishore Nix MD Primary Care Provider [phone] Encounter Details Date Type Department Care Team ([facility] Contact Info) Description 12/05/2024 Telephone Adult Medicine [address] [phone] Ritika Piña, RN Social History Tobacco Use Types Packs/Day Years [...] for your loved ones. For example, child psychometrist or elderly care for an older adult? [...] as of this encounter Progress Notes * Ritika Piña RN - 12/05/2024 11:47 AM EDT [facility] called in a critical lab of potassium 6.[address] Nix ,called pt. And advised to be evaluated in the ER. At present time she is asymptomatic, no dizziness, cp or sob . Pt. agrees documented in this encounter Plan of Treatment Upcoming Encounters Date Type Department Care Team (Late st Contact Info) Description 12/06/2024 9:00 AM EDT Office Visit Adult Medicine [address] [phone] Kishore Nix MD [address] [place] [address] 01/24/2025 8:30 AM EST Office Visit Pulmonology - [place] 175 [facility] [address] [place] [phone] John Cornejo MD [address] [place] [phone] 05/08/2025 1:45 PM EDT Office Visit Bariatric Surgery - [address] [place] [address] Delmar Gamboa MD [address] [place] [phone] 05/29/2025 8:00 AM EDT Appointment Radiology Department - [address] [phone] 06/17/2025 1:00 PM EDT Office Visit [address] [phone] Kishore Nix MD [address] [place] [address] documented as of this encounter Visit Diagnoses Not on filedocumented in this encounter Additional Health Concerns Assessment Noted Time PHQ-9 Depression Total Score: 0 06/10/19 25 10:24 AM EDT documented as of this encounter Care Teams Arcade Attendant Relationship Specialty Start Date End Date Kishore Nix MD [address] [place] [address] PCP - General Internal Medicine 01/25/24 documented as of this encounter
--- OUTSIDE RECORDS SUMMARY | 2024-12-05 19:17 | XMS_ITS | Encounter Summary ---
Author Organization [facility], Address [address] [place] [address] Phone Care Team Providers Care Campaign Advisor Name Role Phone Kishore Nix MD Primary Care Provider [phone] Encounter Details Date Type Department Care Team (Late st Contact Info) Description 12/08/2023 Orders Only [facility] [address] [place] [address] Bhavik Burgos MD [address] [place] [address] [place] [address] Chronic kidney disease, stage 4 (severe) ([facility]) Social History Tobacco Use Types Packs/Day Years [...] Visit [facility] [address] [place] [address] Bhavik Burgos MD [address] [place] [address] [place] [address] documented as of this encounter Visit Diagnoses Diagnosis Chronic kidney disease, stage 4 (severe) (HCC) documented in this encounter Care Teams Campaign Advisor Relationship Specialty Start Date End Date Kishore Nix MD PCP - General 12/11/18 documented as of this encounter
--- OUTSIDE RECORDS SUMMARY | 2024-12-05 19:17 | XMS_ITS | Clinical Summary ---
Author Organization [facility] [address] [facility] Address [address] [place] [address] Phone Care Team Providers Care Showroom Consultant Name Role Phone Kishore Nix MD Primary Care Provider [phone] Allergies No known active allergies Medications acetaminophen (TYLENOL) 500 mg tablet Take 1 tablet (500 mg total) by mouth every 6 (six) hours if needed. 2 Active albuterol HFA (PROAIR HFA ; PROVENTIL HFA ; VENTOLIN HFA) 90 mcg/actuation inhaler Inhale 2 puffs by mouth. 4 Active cholecalciferol (VITAMIN D-3) 25 mcg (1,000 unit) tablet Take 1 tablet (1,000 Units total) by mouth. 3 Active fexofenadine (JUMA) 180 mg tablet Take 1 tablet (180 mg total) by mouth. 8 Active hydrocortisone 2.5 % cream Apply 1 Application topically 2 (two) times a day. 4 Active amLODIPine (NORVASC) 5 mg tablet Take 1 tablet (5 mg total) by mouth 1 (one) time each day. 90 tablet 2 5 Active atorvastatin (LIPITOR) 40 mg tablet Take 1 tablet (40 mg total) by mouth 1 (one) time each day. 90 tablet 2 5 Active carvediloL (COREG) 12.5 mg tablet Take 1 tablet (12.5 mg total) by mouth 2 (two) times a day with meals. 90 tablet 2 5 Active lisinopriL (PRINIVIL,ZESTRI L) 20 mg tablet Take 1 tablet (20 mg total) by mouth 1 (one) time each day. 90 tablet 2 5 Active omeprazole (PriLOSEC) [address] capsule Take 1 capsule (20 mg total) by mouth 1 (one) time each day. 90 capsule 1 5 Active sertraline (ZOLOFT) 100 mg tablet Take 1 tablet (100 mg total) by mouth 1 (one) time each day. 90 tablet 2 5 Active tirzepatide, weight loss, (Zepbound) 12.5 mg/0.5 mL injectionIndicat ions:Class 2 obesity due to excess calories with body mass index (BMI) of 36.0 to 36.9 in adult, unspecified whether serious comorbidity present Inject 0.5 mL (12.5 mg total) under the skin every 7 (seven) days. 2 mL 2 5 01/15/20 25 Active Active Problems Problem Noted Date Diagnosed Date Obesity (BMI 30-39.9) 12/01/2023 Postmenopausal bleeding 10/28/2022 Overview (12/13/2023): Last Assessment & Plan: I discussed the common causes of postmenopausal bleeding including trauma, atrophy, and endometrial polyps, as well as less common but more concerning causes including endometrial hyperplasia and endometrial carcinoma. Recommend pelvic ultrasound, which was ordered today. Discussed recommendation for endometrial sampling, as well, particulary if the endometrial stripe measures >4mm on ultrasound. I do recommend endometrial biopsy regardless of ultrasound findings given persistence of postmenopausal bleeding. She declines biopsy today and will return for endometrial biopsy. All questions answered. Prediabetes 05/07/2020 Chronic insomnia 04/22/2019 Hypersomnolence 04/22/2019 High triglycerides 12/12/2017 Vitamin D deficiency 12/22/2016 Depression 03/30/2015 Obstructive sleep apnea 02/04/2014 Overview (12/13/2023): [facility] Home Sleep Apnea Test: Date 05/06/2019; Wt 245#; BMI 43; CAROLE 52, AI 24; HI 28; Unclassified apneas 3; Obstructive apneas 123; Central apneas 3; Mixed apneas 0; hypopneas 149; average oxygen saturation 91% (lowest 83% with saturations <88% for 5% or more of study) - Obstructive Sleep Apnea - severe; mostly hypopneas and obstructive apneas; with sleep related hypoventilation by 2019 home sleep apnea test. CKD (chronic kidney disease) stage 4, GFR 15-29 ml/min (CMS/HCC V24, CMS/HCC V28) 07/12/2012 Overview (12/13/2023): GFR < 60 on 03/2012, 04/2012, 05/2012. Proteinuria 06/22/2012 Other iron deficiency anemias 09/01/2009 Allergic rhinitis 05/18/2007 Anxiety 05/18/2007 Intramural leiomyoma of uterus 05/31/2006 Overview (12/13/2023): Intramural and subendometrial fibroid identified on US in 2004. Heartburn 10/21/2005 Hematuria 10/21/2005 Overview (12/13/2023): IMO update Hypertension 10/21/2005 Encounters Date Type Department Care Team Description 12/05/2024 8:30 AM EDT Lab Draw [address] Prediabetes; Primary hypertension; CKD (chronic kidney disease) stage 4, GFR 15-29 ml/min (CMS/HCC V24, CMS/HCC V28); Encounter for long-term (current) use of medications; High cholesterol 12/05/2024 8:00 AM EDT Office Visit Adult Medicine [address] [phone] Kishore Nix MD Primary hypertension (Primary Dx); Prediabetes; CKD (chronic kidney disease) stage 4, GFR 15-29 ml/min (CMS/HCC V24, CMS/HCC V28); High cholesterol; Encounter for long-term (current) use of medications; Obstructive sleep apnea; Need for prophylactic vaccination and inoculation against influenza; Other specified counseling 12/05/2024 Results Follow-Up Adult Medicine [address] [phone] Kishore Nix MD 12/05/2024 Telephone Adult Medicine [address] [phone] Ritika Piña RN 11/07/2024 1:00 PM EDT Office Visit Bariatric Surgery [address] [phone] Delmar Gamboa MD Class 1 obesity due to excess calories with body mass index (BMI) of 33.0 to 33.9 in adult, unspecified whether serious comorbidity present (Primary Dx) 10/16/2024 Telephone Bariatric Surgery [address] [phone] Delmar Gamboa MD from Last 3 Months Immunizations Immunization Administration Dates Next Due Influenza trivalent, MDCK, 0 .5mL, preservative free (Flucelvax) 6mo and older 12/05/2024 Surgical History Surgery Date Site/Laterality Comments CARPAL TUNNEL RELEASE PROCEDURE: HISTORICAL CARPAL TUNNEL REL SECTION PROCEDURE: CO DELIVERY ONLY UPPER GASTROINTESTINAL ENDOSCOPY 07/22/2004 PROCEDURE: CO UPPER GI ENDOSCOPY PERFORMED; COMMENT: normal on Nexium rx. COLONOSCOPY 10/01/2014 PROCEDURE: HISTORICAL COLONOSCOPY; COMMENT: Normal Medical History Medical History Date Comments Heartburn 10/21/2005 DX:Heartburn Hematuria 10/21/2005 DX:Hematuria Anxiety state, unspecified 11/04/2005 DX:An xiety state, unspecified Allergic rhinitis 05/18/2007 DX:Allergic rh initis Essential hypertension, benign 10/21/2005 D X:Essential hypertension, benign Historical Medical DX 09/01/2009 DX:Iron de fic anemia NEC CKD (chronic kidney disease) stage 3, GFR 30-59 ml/min (CMS/HCC V24, CMS/HCC V28) 07/12/2012 DX:CKD (chronic kidney disea se) stage 3, GFR 30-59 ml/min ([facility]) Hypertension 10/21/2005 DX:Hypertension Depression 03/30/2015 DX:Depression Family History Medical History Relation Name Comments Hypertension Brother 1 Bladder Cancer Father Heart attack Father in his 60's Hyperlipidemia Father Hypertension Father Diabetes Maternal Grandmother Hyperlipidemia Mother Diabetes Paternal Grandmother Diabetes Sister 1 Blindness Neg Hx Breast cancer Neg Hx Cataracts Neg Hx Colon cancer Neg Hx Glaucoma Neg Hx Macular degeneration Neg Hx Ovarian cancer Neg Hx Strabismus Neg Hx Relation Name Status Comments Brother 1 Brother 2 Alive Brother 3 Alive Father (Age 78) htn, renal failure Maternal Grandmother Mother Alive htn Paternal Grandmother Sister 1 Sister 2 Alive dm Sister 3 Alive htn, Social History Tobacco Use Types Packs/Day Years [...] care for your loved ones. For example, early childhood special educator or elderly care for an older adult? [...] on file Sexual Orientation Not on file Obstetrics History Para Term AB IAB SAB Ectopic Multiple Livin g Live Births 3 3 3 3 Date Outcome GA Total Labor Labor/2nd/3rd Weight Sex Type Anes PTL Chhaya A1 A5 Name Clin Term Term Term Last Filed Vital Signs Vital Sign Reading [...] Mass Index 32.77 12/05/2024 8:03 AM EDT Plan of Treatment Upcoming Encounters Date Type Department Care Team (Late st Contact Info) Description 12/06/2024 9:00 AM EDT Office Visit Adult Medicine [address] [phone] Kishore Nix MD [address] [place] [address] 01/24/2025 8:30 AM EST Office Visit Pulmonology - [place] 175 [facility] 200 [place] [phone] John Cornejo MD [address] [place] [phone] 05/08/2025 1:45 PM EDT Office Visit Bariatric Surgery - [place] 175 [facility] 120 [place] [phone] Delmar Gamboa MD [address] [place] [phone] 05/29/2025 8:00 AM EDT Appointment Radiology Department - [address] [phone] 06/17/2025 1:00 PM EDT Office Visit Adult Medicine [address] [phone] Kishore Nix MD [address] [place] [phone] Health Maintenance Due Date Last Done Comments Colorectal Cancer Screening: Colonoscopy 1964 Zoster Vaccines (1 of 2) 1983 Cervical Cancer Screening: HPV 1985 Pneumococcal Vaccine: 50+ Years (1 of 1 - PCV) 2014 RSV Immunization Adult Patients (1 - Risk 50-74 years 1-dose series) 2014 HIV Screening 01/15/2022 Hepatitis C Screening 01/15/2022 COVID-19 Vaccine ( season) 2024 01/05/2021, 2020, 02/24/2020 Social Influencers of Health Screening 06/09/2025 06/09/2024 Hypertension/CHF/CAD Annual BMP Blood Test 12/05/2025 12/05/2024, 09/26/2024, 06/13/2024, Additional history exists Breast Cancer Screening 05/24/2026 05/25/19, 05/12/2023, 05/12/2023, Additional history exists Cholesterol Screening (Lipid Panel) 12/05/2029 12/05/2024, 06/13/2024, 12/01/2023 DTaP,Tdap,and Td Vaccines (4 - Td or Tdap) 06/10/2032 06/10/2022, 05/25/2012, 12/06/2002 Depression Screening Completed 06/09/2024 Influenza Vaccine Completed 12/05/2024, , 11/05/2021, Additional history exists HIB Vaccines Aged Out No longer eligi ble based on patient's age to complete this topic HPV Vaccines Aged Out No longer eligi ble based on patient's age to complete this topic Hepatitis A Vaccines Aged Out No long er eligible based on patient's age to complete this topic Hepatitis B Vaccines Aged Out No long er eligible based on patient's age to complete this topic IPV Vaccines Aged Out No longer eligi ble based on patient's age to complete this topic MMR Vaccines Aged Out No longer eligi ble based on patient's age to complete this topic Meningococcal ACWY Vaccine Aged Out N o longer eligible based on patient's age to complete this topic Meningococcal B Vaccine Aged Out No l onger eligible based on patient's age to complete this topic RSV Immunization Patients Under 20 months Aged Out No longer eligible based on patient's age to complete this topic Varicella Vaccines Aged Out No longer eligible based on patient's age to complete this topic Procedures Procedure Name Priority Date/Time Associated Diagnosis Comments LIPID PANEL WITH REFLEX TO DIRECT LDL Routine 12/05/2024 8:35 AM EDT High cholesterol COMPREHENSIVE METABOLIC PANEL Routine 12/05/2024 8:35 AM EDT Primary hypertension Prediabetes CKD (chronic kidney disease) stage 4, GFR 15-29 ml/min (CMS/[facility] V24, [facility] V28) Encounter for long-term (current) use of medications HEMOGLOBIN A1C Routine 12/05/2024 8:35 AM EDT Prediabetes MG MAMMO DIGITAL SCREENING W YAO BILAT Routine 05/24/2024 8:02 AM EDT Encounter for screening mammogram for breast cancer from Last 3 Months or Most Recently Relevant to Health Maintenance Results * Lipid panel with reflex to direct LDL (12/05/2024 8:35 AM EDT) Cholesterol 171 0 - 200 mg/dL LAB CHEMISTRY METHOD 12/05/2024 11:14 AM EDT [facility] Triglycerides 103 0 - 150 mg/dL LAB CHEMISTRY METHOD 12/05/2024 11:14 AM EDT [facility] HDL 55 >=40 mg/dL LAB CHEMISTRY METHOD 12/05/2024 11:14 AM EDT [facility] LDL Calculated 95 0 - 100 mg/dL LAB CHEMISTRY METHOD 12/05/2024 11:14 AM EDT [facility] Comment:Estimated LDL Calcul ated using equation: Total cholesterol - HDL cholesterol - (Triglycerides/5) VLDL Cholesterol Balwinder 20.6 mg/dL LAB CHEMISTRY METHOD 12/05/2024 11:14 AM EDT [facility] Non HDL Chol. (LDL+VLDL) 116 <145 mg/dL LAB CHEMISTRY METHOD 12/05/2024 11:14 AM T [facility] Chol/HDL Ratio 3.1 0.0 - 4.4 LAB CHEMISTRY METHOD 12/05/2024 11:14 AM T [facility] Blood Venous blood specimen / Unknown Venipuncture / Unknown 12/05/2024 8:35 AM EDT 12/05/2024 8:35 AM EDT us Kishore Nix MD LAB BLOOD ORDERABLES Final Resu lt [facility] [address] [place] [address], * Hemoglobin A1c (12/05/2024 8:35 AM EDT) Hemoglobin A1C 5.2 <6.5 % LAB CHEMISTRY METHOD 12/05/2024 11:22 AM [facility] Mean Bld Glu Estim. 103 mg/dL LAB CHEMISTRY METHOD 12/05/2024 11:22 AM [facility] Blood Venous blood specimen / Unknown Venipuncture / Unknown 12/05/2024 8:35 AM EDT 12/05/2024 8:35 AM EDT us Kishore Nix MD LAB BLOOD ORDERABLES Final Resu lt [facility] [address] [place] [address], * (ABNORMAL) Comprehensive metabolic panel (12/05/2024 8:35 AM EDT) [facility] Sodium 138 133 - 145 mmol/L LAB [...] AM [facility] Total Bilirubin 0.5 0.0 - 1.4 mg/dL LAB CHEMISTRY METHOD 12/05/2024 11:45 AM [facility] Blood Venous blood specimen / Unknown Venipuncture / Unknown 12/05/2024 8:35 AM EDT 12/05/2024 8:35 AM EDT us Kishore Nix MD LAB BLOOD ORDERABLES Final Resu lt [facility] [address] [place] [address], * MG Mammo Digital Screening w Yao bilat (05/24/2024 8:02 AM EDT) Anatomical Region Laterality Modality Breast Bilateral Mammography 05/24/2024 4:59 PM EDT Impressions 05/24/2024 5:02 PM EDT No mammographic evidence for malignancy. BI-RADS CATEGORY: 1 - NEGATIVE RECOMMENDATION: Screening bilateral mammogram is recommended in 1 year. Mammo Location: [facility], [address] [place] [address], [id number], . -------- FINAL REPORT -------- Dictated By: Milla Lewis Dictated Date: 05/24/2024 16:59 ET Assigned Physician: Milla Lewis Reviewed and Electronically Signed By: Milla Lewis Signed Date: 05/24/2024 17:02 ET Workstation ID: [id number] Transcribed By: Self Edit Transcribed Date: 05/24/2024 16:59 ET Narrative 05/24/2024 5:02 PM EDT Bilateral screening mammogram. CLINICAL: 59 years old, Female, routine annual exam. COMPARISON: Prior mammograms, latest from 05/12/2023. TECHNIQUE: Bilateral MLO and CC views were obtained digitally with 2-D C views and 3-D mammogram (digital breast tomosynthesis). Computer-aided detection was utilized in evaluation of this exam (CAD). FINDINGS: There is no evidence of suspicious mass or architectural distortion. No worrisome calcifications are evident. There has been no significant change from prior exam(s). BREAST DENSITY: B - There are scattered areas of fibroglandular density. Procedure Note Milla Lewis MD - 05/24/2024 Bilateral screening mammogram. CLINICAL: 59 years old, Female, routine annual exam. COMPARISON: Prior mammograms, latest from 05/12/2023. TECHNIQUE: Bilateral MLO and CC views were obtained digitally with 2-D Cviews and 3-D mammogram (digital breast tomosynthesis). Computer-aideddetection was utilized in evaluation of this exam (CAD). FINDINGS: There is no evidence of suspicious mass or architectural distortion. Noworrisome calcifications are evident. There has been no significantchange from prior exam(s). BREAST DENSITY: B - There are scattered areas of fibroglandular density. IMPRESSION: No mammographic evidence for malignancy. BI-RADS CATEGORY: 1 - NEGATIVE RECOMMENDATION: Screening bilateral mammogram is recommended in 1 year. Mammo Location: [facility], [address] [place] [address], [id number], . -------- FINAL REPORT -------- Dictated By: Milla Lewis Dictated Date: 05/24/2024 16:59 ET Assigned Physician: Milla Lewis Reviewed and Electronically Signed By: Milla Lewis Signed Date: 05/24/2024 17:02 ET Workstation ID: [id number] Transcribed By: Self Edit Transcribed Date: 05/24/2024 16:59 ET us Kishore Nix MD IMG BI PROCEDURES Final Result from Last 3 Months or Most Recently Relevant to Health Maintenance Insurance [facility] Care Teams Showroom Consultant Relationship Specialty Start Date End Date Kishore Nix MD [address] [place] [phone] PCP - General Internal Medicine 01/25/24
--- OUTSIDE RECORDS SUMMARY | 2024-12-05 19:17 | XMS_ITS | Encounter Summary ---
Author Organization [facility], Address [address] [place] [address] Phone Care Team Providers Care Bus Matron Name Role Phone Kishore Nix MD Primary Care Provider Encounter Details Date Type Department Care Team (Late st Contact Info) Description 05/24/2024 Orders Only [facility] [address] [place] [address] Bhavik Burgos MD [address] [place] [address] [place] [address] Chronic kidney disease, stage 4 (severe) ([facility]) Social History Tobacco Use Types Packs/Day Years [...] [facility] [address] [place] [address] Bhavik Burgos MD [address] [place] [address] [place] [address] documented as of this encounter Visit Diagnoses Diagnosis Chronic kidney disease, stage 4 (severe) (HCC) documented in this encounter Care Teams Bus Matron Relationship Specialty Start Date End Date Kishore Nix MD PCP - General 12/11/18 documented as of this encounter
--- OUTSIDE RECORDS SUMMARY | 2024-12-05 19:17 | XMS_ITS | Encounter Summary ---
Author Organization [facility], Address [address] [place] [address] Phone Care Team Providers Care Special Delivery Messenger Name Role Phone Kishore Nix MD Primary Care Provider [phone] Encounter Details Date Type Department Care Team (Late st Contact Info) Description 06/21/2024 Orders Only [facility] [address] [place] [address] Bhavik Burgos MD [address] [place] [address] [place] [address] Chronic kidney disease, stage 4 (severe) ([facility]) Social History Tobacco Use Types Packs/Day [...] Visit [facility] [address] [place] [address] Bhavik Burgos MD [address] [place] [address] [place] [address] documented as of this encounter Visit Diagnoses Diagnosis Chronic kidney disease, stage 4 (severe) (HCC) documented in this encounter Care Teams Special Delivery Messenger Relationship Specialty Start Date End Date Kishore Nix MD PCP - General 12/11/18 documented as of this encounter
--- OUTSIDE RECORDS SUMMARY | 2024-12-05 19:17 | XMS_ITS | Encounter Summary ---
Author Organization [facility], Address [address] [place] [address] Phone Care Team Providers Care Biochemistry Teacher Name Role Phone Kishore Nix MD Primary Care Provider [phone] Encounter Details Date Type Department Care Team (Late st Contact Info) Description 01/05/2024 Orders Only [facility] [address] [place] [address] Bhavik Burgos MD [address] [place] [address] [place] [address] Chronic kidney disease, stage 4 (severe) ([facility]) Social History Tobacco Use Types [...] Visit [facility] [address] [place] [address] Bhavik Burgos MD [address] [place] [address] [place] [address] documented as of this encounter Visit Diagnoses Diagnosis Chronic kidney disease, stage 4 (severe) (HCC) documented in this encounter Care Teams Biochemistry Teacher Relationship Specialty Start Date End Date Kishore Nix MD PCP - General 12/11/18 documented as of this encounter
--- OUTSIDE RECORDS SUMMARY | 2024-12-05 19:17 | XMS_ITS | Encounter Summary ---
Author Organization [facility] [place], Address [address] [place] [address] Phone Care Team Providers Care Securities Research Analyst Name Role Phone Kishore Nix MD Primary Care Provider [phone] Encounter Details Date Type Department Care Team (Late st Contact Info) Description 11/10/2023 Orders Only [facility] [address] [place] [address] Bhavik Burgos MD [address] [place] [address] [place] [address] Chronic kidney disease, stage 4 (severe) ([facility]) Social History Tobacco Use Types Packs/Day Years [...] Visit [facility] [address] [place] [address] Bhavik Burgos MD [address] [place] [address] [place] [address] documented as of this encounter Visit Diagnoses Diagnosis Chronic kidney disease, stage 4 (severe) (HCC) documented in this encounter Care Teams Securities Research Analyst Relationship Specialty Start Date End Date Kishore Nix MD PCP - General 12/11/18 documented as of this encounter
--- OUTSIDE RECORDS SUMMARY | 2024-12-05 19:17 | XMS_ITS | Encounter Summary ---
Author Organization [facility] [place], Address [address] [place] [address] Phone Care Team Providers Care Heat Plant Specialist Name Role Phone Kishore Nix MD Primary Care Provider [phone] Encounter Details Date Type Department Care Team (Late st Contact Info) Description 04/08/2021 Documentation Only [facility] [address] [place] [address] Autumn Cole [address] [place] [id number] Social History Tobacco Use Types Packs/Day Years [...] Visit [facility] [address] [place] [address] Bhavik Burgos MD [address] [place] [address] documented as of this encounter Visit Diagnoses Not on filedocumented in this encounter Care Teams Heat Plant Specialist Relationship Specialty Start Date End Date Kishore Nix MD PCP - General 12/11/18 documented as of this encounter
--- OUTSIDE RECORDS SUMMARY | 2024-12-05 19:17 | XMS_ITS | Encounter Summary ---
Author Organization [facility] [place], Address [address] [place] [address] Phone Care Team Providers Care Quality Control Inspector Name Role Phone Kishore Nix MD Primary Care Provider [phone] Encounter Details Date Type Department Care Team (Late st Contact Info) Description 03/29/2024 Orders Only [facility] [address] [place] [address] Bhavik Burgos MD [address] [place] [address] [place] [address] Chronic kidney disease, stage 4 (severe) ([facility]) Social History Tobacco Use Types Packs/Day [...] Visit [facility] [address] [place] [address] Bhavik Burgos MD [address] [place] [address] [place] [address] documented as of this encounter Visit Diagnoses Diagnosis Chronic kidney disease, stage 4 (severe) (HCC) documented in this encounter Care Teams Quality Control Inspector Relationship Specialty Start Date End Date Kishore Nix MD PCP - General 12/11/18 documented as of this encounter
[2024-12-05 19:29] VITALS: BP 152/98; PULSE 73; RESP 18; TEMP 36.6; O2SAT 97
== END 2024-12-05 19:30 | disposition home or self-care (01) ==
PROVIDERS: Physician Assistant; Emergency Provider Student in an Organized Health Care Education/Training Program; PCP Internal Medicine
DX: I12.9 Hypertensive chronic kidney disease with stage 1 through stage 4 chronic kidney disease, or unspecified chronic kidney disease (principal); N18.9 Chronic kidney disease, unspecified; E87.5 Hyperkalemia; Z79.899 Other long term (current) drug therapy
CPT/HCPCS: 36415; 80053; 83735; 85025; 93005; 99283

== ENCOUNTER → 2024-12-05 12:34 | Outpatient (BNV) | payer OTHER, SELFPAY | PROVIDERS: Emergency Provider Student in an Organized Health Care Education/Training Program; PCP Internal Medicine; Visit Provider Internal Medicine | DX: E87.5 Hyperkalemia (principal) | CPT/HCPCS: 93010 ==